=== PATIENT | female | born 1955 | race African-American/Black ===

== ENCOUNTER 2019-06-12 15:47 | Emergency (ER) | payer MEDICARE ==
[~2019-06-12] VITALS: Ht 170.2 cm; Wt 65.8 kg
[2019-06-12] MEDS ORDERED: LISINOPRIL40 MG PO (16:05)
[2019-06-12] MEDS ORDERED: LEVO-T100 MCG PO (16:05)
[2019-06-12] MEDS ORDERED: ASPIRIN EC81 M1 PO (16:06)
[2019-06-12] MEDS ORDERED: NORVASC5 MG PO (16:06)
[2019-06-12 16:23] LABS: ABSOLUTE NEUTROPHILS 2.9 thou/uL (1.4-8.2); BASOPHILS 0.5 % (0.0-2.0); EOSINOPHILS 0.4 % (0.0-3.0); HEMOGLOBIN 13.3 gm/dL (12.0-15.0); LYMPHOCYTES 31.1 % (24.0-44.0); MCH 33.4 pg (26.0-34.0); MCHC 33.3 g/dL (28.0-37.0); MCV 100.2 fL (80.0-100.0); MONOCYTES 6.4 % (1.0-8.0); PLATELET COUNT 220 thou/uL (150-400); POLYS 61.6 % (36.0-66.0); RBC 3.99 mil/uL (4.20-5.00); RDW 12.9 % (10.5-14.5); WBC 4.7 thou/uL (4.0-11.0)
[2019-06-12 16:35] LABS: ANION GAP 12 mmol/L (7-16); BUN 14 mg/dL (7-18); CALCIUM 9.3 mg/dL (8.5-10.1); CHLORIDE 102 mmol/L (98-107); CO2 26 mmol/L (21-32); CREATININE 1.1 mg/dL (0.6-1.0); GLUCOSE 173 mg/dL (74-106); POTASSIUM 3.2 mmol/L (3.5-5.1); SODIUM 140 mmol/L (136-145)
[2019-06-12 16:45] LABS: MAGNESIUM 1.7 mg/dL (1.8-2.4); TROPONIN-I <0.06 ng/mL (<0.06)
[2019-06-12 17:34] VITALS: BP 181/86
--- NOTE | 2019-06-15 09:12 | EKG ---
[facility] [address] ELECTROCARDIOGRAM REPORT Name: TYESHA NIXON Room #: DEP [facility]#: [id number] Admission: 06/12/19 Attend Phys: Discharge: 06/12/19 Date of : 53 Report #: [id number] THIS REPORT FOR: cc: FAM - No family physician/PCP FAM - No family physician/PCP Darin Wolfe MD [facility] THIS REPORT FOR: //name// [facility] ED Test Date: 2019-06-12 Test Time: 15:52:17 Pat Name: TYESHA NIXON Department: Room: Gender: F [employer]: JOSE ANGEL : 1955 Requested By: Carlos Altman Order Number: [id number] MD: Darin Wolfe Measurements Intervals Amo Rate: 125 P: 70 WI: 166 QRS: 39 QRSD: 74 T: 45 QT: 303 QTc: 437 Interpretive Statements Sinus tachycardia LAE, consider biatrial enlargement Borderline ST depression, diffuse leads Compared to ECG 04/07/2009 14:17:11 ST (T wave) deviation now present Electronically Signed On 06-15-2019 9:11:09 CDT by Darin Wolfe [email or web address] <ELECTRONICALLY SIGNED> By: Darin Wolfe MD, FACC 06/15/19 0911 [id number] Darin Wolfe MD, [facility] /EPI
== END 2019-06-12 17:42 | disposition home or self-care (01) ==
LOC: ER 15:47
PROVIDERS: Emergency Medicine
DX: R00.0 Tachycardia, unspecified (principal); I10 Essential (primary) hypertension; Z87.891 Personal history of nicotine dependence